=== PATIENT | female | born 1970 | race Caucasian/White ===

== ENCOUNTER 2020-08-31 20:17 | Emergency (ER) | payer SELFPAY ==
[2020-08-31 20:56] VITALS: BP 132/78; PULSE 106; RESP 22; TEMP 38.4; O2SAT 97; BMI 29.2
--- NOTE | 2020-08-31 21:05 | XRR_ITS ---
PROCEDURE INFORMATION: Exam: XR Chest Exam date and time: 08/31/2020 9:05 PM Age: 50 years old Clinical indication: Dyspnea; Additional info: SOB TECHNIQUE: Imaging protocol: XR of the chest. Views: 1 view. COMPARISON: No relevant prior studies available. FINDINGS: Lungs: Patchy interstitial and alveolar opacities in the lower lobes and the right upper lobe. Pleural spaces: No pleural effusion. No pneumothorax. Heart/Mediastinum: The cardiac silhouette is mildly enlarged. Mediastinal contours are unremarkable. Bones/joints: Unremarkable for age. Organs: Surgical clips in the right upper quadrant, consistent with a previous cholecystectomy. XR/XR chest 1V portable [id number] IMPRESSION: Mild interstitial and alveolar opacities in the lower lobes and the right upper lobe. Findings are suspicious for pneumonia, including atypical and viral organisms. Recommend clinical correlation. Recommend followup chest x-ray to ensure resolution.
--- NOTE | 2020-08-31 21:06 | ED_ITS ---
HPI - COVID General: Chief Complaint: COVID symptoms Stated Complaint: Covid Sym Time Seen by Provider: 08/31/20 21:06 Triage information: Has fever, cough or shortness of breath . No known COVID + exposure last 14 days History of Present Illness: HPI Narrative: Patient presents with 4-day history of cold-like symptoms. Has had Covid exposure at work. Has had [id number] travel last 4 days. MD complaint: reported COVID exposure and has COVID symptoms Prior covid testing: no COVID 19 common symptoms: positive fever(s), chills, cough, non-productive cough, dyspnea, body aches, headache(s), throat pain and nausea COVID 19 other sytmptoms: negative chest pain Onset (ago): day(s) Severity: moderate Treatment prior to arrival: acetaminophen COVID Results: SARS-CoV-2 Antigen (Rapid) Positive (Negative) H 08/31/20 21:10 08/31/20 Review of Systems Const: Reports: fever(s), chills and body aches Eyes: Denies: change in vision or blurry vision ENMT: Reports: throat pain Card: Denies: chest pain or dyspnea on exertion Resp: Reports: dyspnea and non-productive cough GI: Reports: nausea Musc: Denies: extremity pain Skin/Breast: Denies: rash Neuro: Reports: headache(s) Psych: Denies: anxiety or depression Isra/Lymph: Denies: easy bruising Physical Exam Const: COMMON NORMALS: no acute distress, average body habitus and patient oriented x3 HENMT: COMMON NORMALS: normocephalic HEAD & SCALP: normal to inspection and normocephalic FACE & SINUS: normal facial exam Eye: COMMON NORMALS: conjunctivae normal GENERAL EYE: appearance normal, both eyes and all related structures CONJUNCTIVA: Yes conjunctivae normal Neck/C-Spine: COMMON NORMALS: no JVD Chest: COMMONS NORMALS: normal inspection of the chest Resp: COMMON NORMALS: normal respiratory effort and clear to auscultation bi laterally AUSCULTATION: clear to auscultation bilaterally Cardio: COMMON NORMALS: no JVD and regular rhythm RATE: tachycardic RHYTHM: regular rhythm GI: COMMON NORMALS: Normal to inspection, nondistended, normoactive bowel sounds present Extremity: COMMON NORMALS: normal to inspection and full ROM Neuro: COMMON NORMALS: patient oriented x3 Course Vital Signs: Vital signs: Vital Signs Temperature 101 F H 08/31/20 22:20 Pulse Rate 89 08/31/20 22:20 Respiratory Rate 20 H 08/31/20 22:20 Blood Pressure 104/83 08/31/20 22:20 Pulse Oximetry 96 08/31/20 22:20 MDM - COVID MDM Narrative: Medical decision making narrative: Patient maintained sats throughout visit. Patient is Covid positive. Radiology results showed opacities in the lower lobe in the right upper lobe. Suspicious for pneumonia which would be consistent with her Covid. Patient was placed on steroids antibiotics instructed monitor oxygen level follow-up family medical provider return here if worsening symptoms. Patient encouraged to get follow-up chest x- ray with primary care provider. Lab Data: Labs: Lab Results 08/31/20 Range/Units 21:10 SARS-CoV-2 Ag (Rap id) Positive H (Negative) COVID Results: SARS-CoV-2 Antigen (Rapid) Positive (Negative) H 08/31/20 21:10 08/31/20 Discharge Plan Discharge Patient Disposition: Home Clinical Impression: COVID-19 Condition: Stable Prescriptions: New Decadron 6 mg tablet 6 mg PO DAILY Qty: 7 RF: 0 Zithromax Z-Jp 250 mg tablet See Rx Instructions .ROUTE .COMPLEX Qty: 6 RF: 0 Discharge Orders: Discharge ED (Routine); Ordered 08/31/20 Ordered By: Drew Howard Discharge Diet: Usual diet Discharge Activity: Increase activity as tolerated Patient Instructions: Viral Syndrome (ED) Activity Restrictions/Additional Instructions: Follow-up with medical provider as directed. Take medications as prescribed. Return to the ER or your medical provider if condition worsens. Please read and understand discharge instructions. If any questions ask please. You are positive for Covid. Quarantine for at least the next 6 days. Drink plenty of fluids can take Tylenol ibuprofen for discomfort. Follow-up with family medical provider or return here if worsening symptoms. Coding Level of Care Code ED [employer] for [employer] Exam Comprehensive
[2020-08-31] MEDS: acetaminophen 500 mg Tablet 1000 MG PO (21:15)
[2020-08-31] MEDS: ondansetron 4 MG Tablet PO (21:20)
[2020-08-31 21:51] LABS: SARS Covid-2 Antigen Positive (Negative)
[2020-08-31] MEDS: dexamethasone 4 mg Tablet 10 MG PO (22:13)
[2020-08-31 22:20] VITALS: BP 104/83; PULSE 89; RESP 20; TEMP 38.3; O2SAT 96
== END 2020-08-31 22:27 | disposition home or self-care (01) ==
PROVIDERS: Emergency Provider Nurse Practitioner Family
DX: U07.1 COVID-19 (principal)
CPT/HCPCS: 71045; 87426; 99283; J8540; Q0162

== ENCOUNTER 2022-02-11 06:57 | Emergency (ER) | payer OTHER, SELFPAY ==
[2022-02-11 07:03] VITALS: BP 109/66; PULSE 97; RESP 18; TEMP 36.8; O2SAT 99; BMI 27.4
--- NOTE | 2022-02-11 07:10 | XR_ITS ---
WS: [id number] Right wrist, 3 views, 02/11/2022 Clinical Data: fall with wrist pain Comparison: None. Findings: There may be a fracture of the base of the right fourth or fifth metacarpal. There are possible fragm ents noted overlying these metacarpals The carpal bones are intact. XR/XR wrist RT min 3V* [id number] Impression: Possible fracture at the base of the right fourth and/or fifth metacarpal
--- NOTE | 2022-02-11 07:11 | ED_ITS ---
Documented by User: PAULIE Cooper 02/11/22 16:38 HPI - Extremity Problem General: Chief complaint: Extremity Injury, Upper Stated complaint: Right hand injury Time Seen by Provider: 02/11/22 07:10 History of Present Illness: Patient is a 51-year-old female comes to the ED with right hand and wrist injury. Injury occurred just prior to arrival. Patient says she tripped and fell while walking down her front porch. She landed on both right and left arms extended out. Denies any head trauma or loss of consciousness. Associated symptoms: Deny chest pain, fever(s) or rash Review of Systems Const: Denies: fever(s), chills or fatigue Eyes: Denies: change in vision or eye discomfort ENMT: Denies: throat pain, odynophagia, nasal discharge or nasal congestion Card: Denies: chest pain, palpitations, edema, swelling of feet/ankles, dyspnea on exertion or orthopnea Resp: Denies: dyspnea, productive cough or non-productive cough GI: Denies: abdominal pain, nausea, vomiting, diarrhea, constipation or hematochezia : Denies: flank pain, dysuria or hematuria Musc: Reports: extremity pain (Right wrist pain and right hand) and extremity swelling (Right hand); Denies: neck pain or back pain Skin/Breast: Denies: rash or new lesions Neuro: Denies: headache(s), numbness in extremities or weakness in extremities PFS ED PFSH: Medical History No pertinent family history Surgical History No pertinent past surgical history Physical Exam Const: COMMON NORMALS: patient oriented x3, healthy appearing and alert GENERAL APPEARANCE: cooperative and comfortable HENMT: COMMON NORMALS: normocephalic HEAD & SCALP: normocephalic MOUTH: Normal oral and palatal mucosa present THROAT: posterior oropharynx normal and uvula midline Neck/C-Spine: COMMON NORMALS: supple GENERAL: Yes normal visual inspection Resp: COMMON NORMALS: normal respiratory effort, No retractions, No use of accessory muscles and clear to auscultation bilaterally AUSCULTATION: clear to auscultation bilaterally Cardio: COMMON NORMALS: regular rate, regular rhythm, S1 normal heart sound present, S2 normal heart sound present, No gallops present (Cardio), No clicks present (Cardio), No murmurs present (Cardio) and Peripheral pulses 2+ throughout RATE: regular rate RHYTHM: regular rhythm HEART SOUNDS: S1 normal heart sound present and S2 normal heart sound present PERIPHERAL PULSES: Peripheral pulses 2+ throughout GI: COMMON NORMALS: Normal to inspection, nondistended, normoactive bowel sounds present, Soft to palpation, non-tender and no masses PALPATION: Yes Soft to palpation : COMMON NORMALS: Yes no CVA tenderness BLADDER/KIDNEY EXAM: Yes no CVA tenderness Back/Pelvis: COMMON NORMALS: no CVA tenderness Extremity: NARRATIVE EXTREMITY EXAM: Right hand?no visible deformity noted. 4th and 5th metacarpal tenderness and swelling and ecchymosis noted. Limited range of motion in right wrist due to pain. Neurovascular intact distally. Neuro: COMMON NORMALS: patient oriented x3 SENSORIUM/ORIENTATION: Yes alert GAIT: Yes Normal gait present Skin: GENERAL SKIN EXAM: dry skin Course Vital Signs: Vital signs: Vital Signs Temperature 98.2 F 02/11/22 07:03 Pulse Rate 97 02/11/22 07:03 Respiratory Rate 18 02/11/22 07:03 Blood Pressure 109/66 02/11/22 07:03 Pulse Oximetry 99 02/11/22 07:03 Oxygen Delivery Me thod 02/11/22 07:03 MDM - Extremity (Nontraumatic) Medical Decision Making Patient is a 51-year-old female comes to the ED with right wrist and right hand injury after fall. Vitals are stable. Exam shows ecchymosis and swelling of right hand and tenderness over fourth and fifth metacarpals. X-rays of right hand show fracture at the base of right fourth and fifth metacarpal. Patient was put in ulnar gutter splint. I placed an order with case management for patient to be referred to Ortho for follow-up on fracture. She was discharged home with a prescription for hydrocodone to help with pain. Return to ED precau tions given. Patient understood and agreed with plan. Lab Data Radiology Impressions Wrist X-Ray 02/11/22 07:10 Impression: Possible fracture at the base of the right fourth and/or fifth metacarpal Hand X-Ray 02/11/22 07:17 Impression: Probable fracture at the base of the right fourth or fifth metacarpal. Discharge Plan Discharge Patient Disposition: Home Clinical Impression: Fracture of metacarpal Qualifiers: Encounter type: initial encounter Metacarpal bone: fifth Fracture type: closed Metacarpal location: base Laterality: right Condition: Stable Prescriptions: New ibuprofen 800 mg tablet 800 mg PO Q8H PRN (Reason: pain) Qty: 30 0RF No Action Decadron 6 mg tablet 6 mg PO DAILY Qty: 7 0RF Zithromax Z-Jp 250 mg tablet See Rx Instructions .ROUTE .COMPLEX Qty: 6 0RF Rx Instructions: take 500 mg today (day 1), then 250 mg for 4 days (days 2-5) Discharge Orders: Discharge ED (Routine); Ordered 02/11/22 Ordered By: Mike Recio Discharge Diet: Regular Discharge Activity: Limit activity as instructed Patient Instructions: Hand Fracture (DC), Opioid Safety Activity Restrictions/Additional Instructions: Follow-up with medical provider as directed. Case management should be contacting in the next several days to set up an appointment with orthopedic doctor for follow-up and further management of fracture. Keep splint on and dry and limit any activity with right hand until cleared by orthopedic doctor. Take medications as prescribed. Return to the ER or your medical provider if condition worsens. Please read and understand discharge instructions. Thank you for choosing [facility] for your healthcare needs today. Please realize this is an emergency room and that we are providing you with a medical screening exam and this may not be complete and all inclusive of all the testing and or work up that you may need to determine your ailment or severity of your illness. It is very important that you follow up as instructed or that you return to the Emergency Department should you have concerns or if your condition changes or worsens in any way. Coding Level of Care Code ED [employer] Exam Comprehensive Documented by User: Anthony Vanegas DO 02/11/22 18:00 HPI - Extremity Problem General: Chief complaint: Extremity Injury, Upper Stated complaint: Right hand injury Time Seen by Provider: 02/11/22 07:10 COUNTS INCLUDE 234 BEDS AT THE [facility] ED PFSH: Medical History No pertinent family history Surgical History No pertinent past surgical history Course Vital Signs: Vital signs: Vital Signs Temperature 98.2 F 02/11/22 07:03 Pulse Rate 97 02/11/22 07:03 Respiratory Rate 18 02/11/22 07:03 Blood Pressure 109/66 02/11/22 07:03 Pulse Oximetry 99 02/11/22 07:03 Oxygen Delivery Me thod 02/11/22 07:03 MDM - Extremity (Nontraumatic) Medical Decision Making Patient is a 51-year-old female comes to the ED with right wrist and right hand injury after fall. Vitals are stable. Exam shows ecchymosis and swelling of right hand and tenderness over fourth and fifth metacarpals. X-rays of right hand show fracture at the base of right fourth and fifth metacarpal. Patient was put in ulnar gutter splint. I placed an order with case management for patient to be referred to Ortho for follow-up on fracture. She was discharged home with a prescription for hydrocodone to help with pain. Return to ED precautions given. Patient understood and agreed with plan. Chart reviewed and patient discussed with midlevel. Agree with assessment and plan. Lab Data Radiology Impressions Wrist X-Ray 02/11/22 07:10 Impression: Possible fracture at the base of the right fourth and/or fifth metacarpal Hand X-Ray 02/11/22 07:17 Impression: Probable fracture at the base of the right fourth or fifth metacarpal. Discharge Plan Discharge Patient Disposition: Home Clinical Impression: Fracture of metacarpal Qualifiers: Encounter type: initial encounter Metacarpal bone: fifth Fracture type: closed Metacarpal location: base Laterality: right Condition: Stable Prescriptions: New ibuprofen 800 mg tablet 800 mg PO Q8H PRN (Reason: pain) Qty: 30 0RF No Action Decadron 6 mg tablet 6 mg PO DAILY Qty: 7 0RF Zithromax Z-Jp 250 mg tablet See Rx Instructions .ROUTE .COMPLEX Qty: 6 0RF Rx Instructions: take 500 mg today (day 1), then 250 mg for 4 days (days 2-5) Discharge Orders: Discharge ED (Routine); Ordered 02/11/22 Ordered By: Mike Recio Discharge Diet: Regular Discharge Activity: Limit activity as instructed Patient Instructions: Hand Fracture (DC), Opioid Safety Activity Restrictions/Additional Instructions: Follow-up with medical provider as directed. Case management should be contacting in the next several days to set up an appointment with orthopedic doctor for follow-up and further management of fracture. Keep splint on and dry and limit any activity with right hand until cleared by orthopedic doctor. Take medications as prescribed. Return to the ER or your medical provider if condition worsens. Please read and understand discharge instructions. Thank you for choosing [facility] for your healthcare needs today. Please realize this is an emergency room and that we are providing you with a medical screening exam and this may not be complete and all inclusive of all the testing and or work up that you may need to determine your ailment or severity of your illness. It is very important that you follow up as instructed or that you return to the Emergency Department should you have concerns or if your condition changes or worsens in any way. Coding Level of Care Code ED [employer] for [employer] [place] Exam Comprehensive
--- NOTE | 2022-02-11 07:17 | XR_ITS ---
WS: [id number] Right hand, 3 views, 02/11/2022 Clinical Data: fall with hand pain Comparison: None. Findings: There is a fracture at the base of the right fourth and/or fifth metacarpal. The phalanges are intact. The joint spaces are unremarkable. There is no soft tissue swelling.The patient's ring taylor rrounding the right fourth finger proximal phalanx obscures minimal detail. XR/XR hand RT min 3V* [id number] Impression: Probable fracture at the base of the right fourth or fifth metacarpal.
[2022-02-11] MEDS: HYDROcodone-acetaminophen 7.5-325 mg Tablet 1 TAB PO (07:38)
--- NOTE | 2022-02-11 08:51 | DCPLANNER ---
Addendum entered by Jeannie Spear 02/13/22 09:34: Patient had a follow up appointment scheduled for 02.13.22 with ortho - patient did attend appointment Original Note: crm manager had message to schedule a follow up appointment for patient with ortho. patient case coordinator sent patients information to the front office staff at ortho. Patients information will be printed and reviewed. Clinic will call patient with appointment information.
== END 2022-02-11 08:09 | disposition home or self-care (01) ==
PROVIDERS: Emergency Provider Physician Assistant
DX: S62.346A Nondisplaced fracture of base of fifth metacarpal bone, right hand, initial encounter for closed fracture (principal); W01.0XXA Fall on same level from slipping, tripping and stumbling without subsequent striking against object, initial encounter
CPT/HCPCS: 29125; 73110; 73130; 99283

== ENCOUNTER 2022-02-19 08:04 | Outpatient (CLI) | payer OTHER, SELFPAY ==
--- NOTE | 2022-02-19 08:00 | CTR_ITS ---
PROCEDURE INFORMATION: Exam: CT Right Upper Extremity Without Contrast, Hand Exam date and time: 02/19/2022 8:14 AM Age: 51 years old Clinical indication: Injury or trauma; Fall; Blunt trauma (contusions or hematomas); Hand; Right; Additional info: Rule out: 5th cmc fracture dislocation, Dr. Recio would like this done as soon as possible. TECHNIQUE: Imaging protocol: Computed tomography of the Right upper extremity without contrast. Exam focused on the hand. Radiation optimization: All CT scans at this facility use at least one of these dose optimization techniques: automated exposure control; mA and/or kV adjustment per patient size (includes targeted exams where dose is matched to clinical indication); or iterative reconstruction. COMPARISON: CR XR hand RT min 3V* [id number] 02/11/2022 7:21 AM RADIATION DOSE METRICS: Total DLP (mGy-cm): 118.28 FINDINGS: Bones/joints: Acute slightly comminuted and impacted fracture of the base of the 5th metacarpal is noted with extension to the distal articular surface on series 6, image 34. Gap and step-off at the articular surface measures approximately 2 mm, best demonstrated on series 7, image 28. The major fracture fragment arises from the radial base measuring 0.8 cm superior to inferior by 0.6 cm medial to lateral by 0.5 cm anterior to posterior. No dislocation. Soft tissues: A brace is present along the dorsum of the hand. Mild soft tissue swelling is noted throughout the hand. CT/CT hand RT wo con* [id number] IMPRESSION: Comminuted acute appearing mildly displaced fracture of the base of the 5th metacarpal.
== END 2022-02-19 08:05 | disposition home or self-care (01) ==
LOC: RAD 08:05
PROVIDERS: Visit Provider Student in an Organized Health Care Education/Training Program
DX: S62.316A Displaced fracture of base of fifth metacarpal bone, right hand, initial encounter for closed fracture (principal); W19.XXXA Unspecified fall, initial encounter
CPT/HCPCS: 73200

== ENCOUNTER 2022-02-19 16:10 | Outpatient (CLI) | payer OTHER, SELFPAY | END 2022-02-19 16:11 | disposition home or self-care (01) | LOC: SPT 16:10 | PROVIDERS: Visit Provider Student in an Organized Health Care Education/Training Program | DX: Z46.89 Encounter for fitting and adjustment of other specified devices (principal); S62.318D Displaced fracture of base of other metacarpal bone, subsequent encounter for fracture with routine healing; X58.XXXD Exposure to other specified factors, subsequent encounter | CPT/HCPCS: 97760; L3984 ==

== ENCOUNTER → 2022-03-09 14:12 | Outpatient (BNVA) | payer OTHER, SELFPAY | PROVIDERS: Visit Provider Student in an Organized Health Care Education/Training Program | DX: S62.316A Displaced fracture of base of fifth metacarpal bone, right hand, initial encounter for closed fracture (principal); X58.XXXA Exposure to other specified factors, initial encounter | CPT/HCPCS: 73130 ==

== ENCOUNTER → 2022-03-26 07:28 | Outpatient (BNVA) | payer OTHER, SELFPAY | PROVIDERS: Visit Provider Student in an Organized Health Care Education/Training Program | DX: S62.316A Displaced fracture of base of fifth metacarpal bone, right hand, initial encounter for closed fracture (principal); X58.XXXA Exposure to other specified factors, initial encounter | CPT/HCPCS: 73130 ==

== ENCOUNTER 2022-03-26 08:19 | Outpatient (RCR) | payer OTHER, SELFPAY | END 2022-04-14 23:59 | disposition home or self-care (01) | LOC: SOT 08:19 | PROVIDERS: PCP Registered Nurse; Visit Provider Student in an Organized Health Care Education/Training Program | DX: S62.316D Displaced fracture of base of fifth metacarpal bone, right hand, subsequent encounter for fracture with routine healing (principal); X58.XXXD Exposure to other specified factors, subsequent encounter | CPT/HCPCS: 97165 ==

== ENCOUNTER 2023-05-07 11:00 | Oncology outpatient (recurring) (ONCR) | payer OTHER, SELFPAY ==
[2023-04-21 15:22] LABS: Basophils # 0.1 10^3/uL (0.0-0.1); Basophils % 1.4 %; Eosinophils # 0.4 10^3/uL (0.0-0.8); Eosinophils % 5.6 %; Hematocrit 36.5 % (36-47); Lymphocytes % 27.2 %; Mean Corpuscular HGB Conc 29.9 g/dL (30-55); Mean Corpuscular Hemoglobin 22.1 pg (27-33); Mean Corpuscular Volume 73.9 fl (85-98); Mean Platelet Volume 10.5 fL (7.4-10.4); Monocytes # 0.3 10^3/uL (0.2-0.9); Monocytes % 4.5 %; Neutrophils # 4.51 10^3/uL (1.8-7.7); Nucleated Red Blood Cells % 0 %; Platelet Count 307 10^3/cmm (157-399); Red Blood Count 4.94 10^6/uL (3.85-5.65); Red Cell Distribution Width 19.2 % (12.1-15.1); White Blood Count 7.38 10^3/uL (3.29-11.43)
[2023-04-21 15:23] LABS: Reticulocyte % 1.3 % (0.5-2.0)
[2023-04-21 15:47] LABS: Alanine Aminotransferase 26 U/L (0-33); Albumin Level 4.3 g/dL (3.5-5.2); Alkaline Phosphatase 97 U/L (35-105); Anion Gap 12.7 (5-19); Aspartate Amino Transferase 27 U/L (0-32); Blood Urea Nitrogen 10 mg/dL (6-20); Calcium 8.7 mg/dL (8.5-10.5); Carbon Dioxide 24 mmol/L (22-29); Chloride 105 mmol/L (98-107); Creatinine Clr Calc Pharmacy 128.4308; Ferritin 8 ng/mL (15-150); Globulin 3.3 g/dL (1.3-4.6); Glomerular Filtration Rate 129.6 mL/min (90-130); Glucose 133 mg/dL (65-115); Iron 15 ug/dL (37-145); Osmolality Calculated 287 mOsm/kg (285-295); Percent Saturation 3.4 % (20-50); Potassium 3.7 mmol/L (3.5-5.1); Sodium 138 mmol/L (136-145); Total Bilirubin 0.2 mg/dL (0.15-1.2); Total Iron Binding Capacity 436 mcg/dl; Total Protein 7.6 g/dL (6.6-8.7); Unsaturated Iron Binding 421 ug/dL (112-347)
[2023-04-27] MEDS: iron sucrose 200 MG in sodium chloride 0.9% (100 ml) 100 ML 220 MG IV (14:44)
[2023-04-27] MEDS: sodium chloride 0.9% 250 ML 75 ML IV (14:44)
[2023-04-29] MEDS: iron sucrose 200 MG in sodium chloride 0.9% (100 ml) 100 ML 220 MG IV (14:28)
[2023-04-29 14:59] VITALS: BP 155/84; PULSE 84; TEMP 36.4; O2SAT 94
[2023-05-03] MEDS: iron sucrose 200 MG in sodium chloride 0.9% (100 ml) 100 ML 220 MG IV (15:22)
[2023-05-03 16:19] VITALS: BP 132/84; PULSE 88; RESP 16; TEMP 36.6
[2023-05-05 15:40] VITALS: BP 133/74; PULSE 74; RESP 16; TEMP 35.9; O2SAT 98
[2023-05-05 17:04] VITALS: BP 156/75; PULSE 66; RESP 16; TEMP 36.3; O2SAT 98
[2023-05-07] MEDS: iron sucrose 200 MG in sodium chloride 0.9% (100 ml) 100 ML 220 MG IV (11:07)
== END 2023-05-16 23:59 | disposition home or self-care (01) ==
PROVIDERS: PCP Registered Nurse; Visit Provider Internal Medicine
DX: D50.9 Iron deficiency anemia, unspecified (principal); Z53.9 Procedure and treatment not carried out, unspecified reason
CPT/HCPCS: 36415; 80053; 82728; 83540; 83550; 85025; 85045; 96365; J1756; J7050